=== PATIENT | female | born 1965 | race Caucasian/White ===

== ENCOUNTER 2018-04-22 14:12 | Emergency (ER) | payer MEDICARE, MEDICAID ==
[2018-04-22 15:06] LABS: Bilirubin Negative (Negative); Blood, Urine Negative (Negative); Clarity CLEAR (Clear); Glucose, Urine (Dipstick) Negative (Negative); Leukocyte Negative (Negative); Nitrite Negative (Negative); Protein, Urine (Dipstick) Trace mg/dL (Neg-Trace); Specific Gravity, Urine 1.031 (1.002-1.036); Urobilinogen 0.2 mg/dL (0.2-1.0)
[2018-04-22 15:15] LABS: Cocaine Metabolite Screen Not Detected (NotDetected); Medtox Reader # READER 4; Methamphetamine Not Detected (NotDetected); Phencyclidine (PCP) Not Detected (NotDetected); THC/Cannabinoid Screen Detected (NotDetected)
[2018-04-22 15:16] LABS: Amphetamine Not Detected (NotDetected); Barbiturates Screen Not Detected (NotDetected); Benzodiazepine Screen Detected (NotDetected); Medtox Control Line Valid? VALID (VALID); Methadone Not Detected (NotDetected); Opiate Screen Not Detected (NotDetected); Oxycodone Screen Not Detected (NotDetected); Tricyclic Screen Not Detected (NotDetected)
[2018-04-22 15:17] LABS: #Basophils 0.1 thou/uL (0.0-0.2); #Eosinphils 0.2 thou/uL (0.0-0.7); #Lymphocytes 3.2 thou/uL (1.20-3.40); #Monocytes 0.6 thou/uL (0.11-0.59); #Neutrophils 4.5 thou/uL (1.40-6.50); %Lymphocytes 37.6 % (21.0-51.0); %Monocytes 6.4 % (0.0-10.0); Hemoglobin 13.8 g/dL (12.0-16.0); Mean Corpuscular HGB CONC 32.9 g/dL (32.0-36.0); Mean Corpuscular Hemoglobin 29.5 pg (27.0-31.0); Mean Corpuscular Volume 89.7 fL (78.0-98.0); Mean Platelet Volume 7.6 fL (7.4-10.4); Platelet Count 276 thou/uL (130-400); RBC Distribution Width 12.8 % (11.5-14.5); Red Blood Cell (RBC) Count 4.66 mill/uL (4.20-5.40); White Blood Cell (WBC) Count 8.5 thou/uL (4.8-10.8)
[2018-04-22 15:26] LABS: BHCG - Serum Negative (NEGATIVE); Pregs Control Background? CLEAR/WHITE (CLR/WHITE); Pregs Control Bar Appear? YES (CONTROL BAR)
[2018-04-22 15:32] LABS: ALT (SGPT) 19 U/L (8-55); AST (SGOT) 14 U/L (5-34); Acetaminophen Less than 6.0 mcg/mL (10.0-30.0); Albumin 4.1 g/dL (3.5-5.0); Alcohol Less than 10 mg/dL (Less than 10); Alkaline Phosphatase 72 U/L (40-150); Anion Gap 11 mmol/L (10-20); BUN (Urea Nitrogen) 16 mg/dL (9.8-20.1); Bilirubin, Total 0.3 mg/dL (0.2-1.2); Calc. Creatinine Clearance 0 mL/min (70-130); Calcium 9.9 mg/dL (7.8-10.44); Carbon Dioxide 31 mmol/L (22-29); Chloride 104 mmol/L (98-107); Estimated GFR-MDRD 82; Globulin 2.5 g/dL (2.4-3.5); Glucose 91 mg/dL (70-105); Potassium 3.2 mmol/L (3.5-5.1); Protein, Total 6.6 g/dL (6.0-8.3); Salicylate Less than 8.0 mg/dL (15.0-30.0); Sodium 143 mmol/L (136-145)
[2018-04-22 18:02] LABS: Pregnancy Test - Urine (BHCG) Negative (Negative); Pregu Control Background? CLEAR/WHITE (CLR/WHITE); Pregu Control Bar Appear? YES (CONTROL BAR); Specific Gravity 1.031 (1.002-1.036)
[2018-04-22] MEDS ORDERED: Acetaminophen 325 MG TAB ONE (19:35)
[2018-04-22] MEDS ORDERED: hydrOXYzine Pamoate 25 mg Capsule ONE (19:35)
== END 2018-04-23 09:05 ==
LOC: ERS 14:12
DX: F43.20 Adjustment disorder, unspecified (principal); I10 Essential (primary) hypertension; F41.9 Anxiety disorder, unspecified; F32.9 Major depressive disorder, single episode, unspecified
CPT/HCPCS: 36415; 80053; 80306; 80307; 81003; 81025; 82550; 84443; 84703; 85025; 99285; Q0177

== ENCOUNTER 2019-02-04 11:32 | Emergency (ER) | payer MEDICARE, MEDICAID ==
[2019-02-04] MEDS ORDERED: Lorazepam 2 MG/ML VIAL ONE (11:58)
[2019-02-04] MEDS ORDERED: Albuterol Sulfate 2.5 mg/0.5 ml Neb ONE ×2 (12:18→13:17)
[2019-02-04] MEDS ORDERED: Albuterol Sulfate 2.5 mg/3 ml Neb ONE ×2 (12:18→13:17)
--- NOTE | 2019-02-04 12:20 | RAD ---
Exam: Chest one view HISTORY:SOB Comparison: 09/29/2018 FINDINGS: Lungs: Subtle patchy density seen at each lung base Cardiac silhouette:Accentuated by technique Pulmonary vessels: Mild central prominence Pleural Spaces: Clear Pneumothorax: None Osseous abnormalities: None of acuity. IMPRESSION: Mild patchy bibasilar densities which could relate to volume loss or edema, in light of m ild prominence of pulmonary vasculature.
[2019-02-04 12:25] LABS: #Eosinphils 0.1 thou/uL (0.0-0.7); #Monocytes 0.6 thou/uL (0.11-0.59); #Neutrophils 11.1 thou/uL (1.40-6.50); %Eosinophils 0.6 % (0.0-10.0); %Lymphocytes 14.5 % (21.0-51.0); %Monocytes 4.3 % (0.0-10.0); %Neutrophils 80.5 % (42.0-75.0); Hemoglobin 14.8 g/dL (12.0-16.0); Mean Corpuscular HGB CONC 33.1 g/dL (32.0-36.0); Mean Corpuscular Hemoglobin 28.2 pg (27.0-31.0); Mean Corpuscular Volume 85.2 fL (78.0-98.0); Mean Platelet Volume 7.6 fL (7.4-10.4); Platelet Count 286 thou/uL (130-400); Red Blood Cell (RBC) Count 5.23 mill/uL (4.20-5.40); White Blood Cell (WBC) Count 13.8 thou/uL (4.8-10.8)
[2019-02-04 12:50] LABS: ALT (SGPT) 8 U/L (8-55); AST (SGOT) 11 U/L (5-34); Albumin 4.4 g/dL (3.5-5.0); Alkaline Phosphatase 77 U/L (40-110); Anion Gap 13 mmol/L (10-20); BUN (Urea Nitrogen) 9 mg/dL (9.8-20.1); Bilirubin, Total 0.5 mg/dL (0.2-1.2); Calc. Creatinine Clearance 0 mL/min (70-130); Carbon Dioxide 28 mmol/L (22-29); Chloride 104 mmol/L (98-107); Estimated GFR-MDRD 71; Glucose 112 mg/dL (70-105); Potassium 3.8 mmol/L (3.5-5.1); Protein, Total 7.4 g/dL (6.0-8.3); Sodium 141 mmol/L (136-145)
[2019-02-04] MEDS ORDERED: methylPREDNISolone Sod Succ/PF 125 MG/2 ML VIAL ONE (13:21)
--- NOTE | 2019-02-04 13:41 | CT ---
CT ANGIOGRAM THORAX WITH CONTRAST: (CTA pulmonary angiogram) DATE: 02/04/2019 HISTORY: 54-year-old female with dyspnea and history of previous PE. COMPARISON: 09/29/2018 and 09/19/2012. TECHNIQUE: IV injection of iodinated contrast. Scan acquisition timing attempted to coincide with iodinated contrast bolus reaching maximal density in pulmonary arteries. 3-D MIP reconstructions. FINDINGS: Pulmonary thromboembolism: None. Lungs: No consolidation or edema. A few scattered pleural-based noncalcified bilateral pulmonary nodu les, mentioned on the report of 09/29/2018, are unchanged since 09/19/2012, and are therefore all benign. They do not require follow-up. Pneumothorax: None. Pleural effusion: None. Mild mediastinal and hilar lymphadenopathy, unchanged compared to 09/29/2018 and 09/19/2012. Thoracic aorta: No dissection or aneurysm. Trachea and bilateral mainstem bronchi: Patent and clear. Cardiac: No cardiomegaly or pericardial effusion. No interval change overall since 09/29/2018. IMPRESSION: 1. No pulmonary thromboembolism. 2. No active disease.
[2019-02-04] MEDS ORDERED: Ondansetron PF 4 MG/2 ML Vial ONE (14:16)
[2019-02-04] MEDS ORDERED: Acetaminophen 500 MG TAB ONE (15:21)
== END 2019-02-04 15:29 | disposition home or self-care (01) ==
LOC: ERS 11:32
DX: J45.909 Unspecified asthma, uncomplicated (principal); I10 Essential (primary) hypertension; F41.9 Anxiety disorder, unspecified; F32.9 Major depressive disorder, single episode, unspecified
CPT/HCPCS: 71045; 71275; 80053; 84484; 85025; 85379; 93005; 94640; 96374; 96375; J2060; J2405; J2930; J7611

== ENCOUNTER 2019-04-14 13:07 | Outpatient (CLI) | payer MEDICAID, OTHER ==
--- NOTE | 2019-04-14 14:15 | RAD ---
RIGHT ANKLE 3 VIEWS: Date: 04/14/2019 HISTORY: Right ankle pain. FINDINGS: Mild ankle joint osteoarthrosis changes. Calcaneal Achilles and plantar enthesophytes. No acute fract ure or dislocation. IMPRESSION: Osteoarthrosis and degenerative change without fracture or dislocation. POS: [facility]
--- NOTE | 2019-04-14 14:17 | RAD ---
RIGHT FOOT 3 VIEWS: Date: 04/14/2019 HISTORY: Right foot pain. FINDINGS/IMPRESSION: Degenerative and osteoarthrosis changes without fracture, dislocation, or other acute osseous process . POS: [facility]
== END 2019-04-14 13:08 | disposition home or self-care (01) ==
LOC: RAD-FRANK 13:07
PROVIDERS: ATTEND Internal Medicine
DX: S99.911A Unspecified injury of right ankle, initial encounter (principal); M19.071 Primary osteoarthritis, right ankle and foot

== ENCOUNTER 2019-07-02 08:05 | Outpatient (CLI) | payer MEDICARE, MEDICAID ==
--- NOTE | 2019-07-02 09:09 | MMO ---
Bilateral MAMMO Bilat Screen [facility]. CLINICAL HISTORY: Patient is 54 years old and is seen for screening. The patient has no family history of breast cancer. The patient has no personal history of cancer. VIEWS: The views performed were: bilateral craniocaudal with tomosynthesis and bilateral mediolateral oblique with tomosynthesis. This study has been interpreted with the assistance of computer-aided detection. MAMMOGRAM FINDINGS: There are scattered fibroglandular densities. There are no suspicious masses, suspicious calcifications, or new areas of architectural distortion. IMPRESSION: THERE IS NO MAMMOGRAPHIC EVIDENCE OF MALIGNANCY. A ROUTINE FOLLOW-UP MAMMOGRAM IN 1 YEAR IS RECOMMENDED. THE RESULTS OF THIS EXAM WERE SENT TO THE PATIENT. ACR BI-RADS Category 1 - Negative MAMMOGRAPHY NOTE: 1. A negative mammogram report should not delay a biopsy if a dominant of clinically suspicious mass is present. 2. Approximately 10% to 15% of breast cancers are not detected by mammography. 3. Adenosis and dense breasts may obscure an underlying neoplasm. Reported by: DONNELL ZARATE MD Electonically Signed: [id number]
== END 2019-07-02 08:06 | disposition home or self-care (01) ==
LOC: BICMAMMO 08:05
PROVIDERS: ATTEND Family Medicine
DX: Z12.31 Encounter for screening mammogram for malignant neoplasm of breast (principal)
CPT/HCPCS: 77063; 77067

== ENCOUNTER 2021-02-09 22:27 | Emergency (ER) | payer MEDICARE, MEDICAID ==
[2021-02-09] MEDS ORDERED: Sucralfate 1 GM/10 ML UDCUP ONE (23:19)
[2021-02-09 23:27] LABS: #Lymphocytes 0.5 thou/uL (1.20-3.40); #Monocytes 0.8 thou/uL (0.11-0.59); #Neutrophils 5.7 thou/uL (1.40-6.50); %Eosinophils 0.3 % (0.0-10.0); %Lymphocytes 7.6 % (21.0-51.0); %Monocytes 10.7 % (0.0-10.0); %Neutrophils 81.4 % (42.0-75.0); Hemoglobin 16.2 g/dL (12.0-16.0); Mean Corpuscular HGB CONC 32.8 g/dL (32.0-36.0); Mean Corpuscular Hemoglobin 28.7 pg (27.0-31.0); Mean Corpuscular Volume 87.7 fL (78.0-98.0); Platelet Count 215 thou/uL (130-400); RBC Distribution Width 13.5 % (11.5-14.5); Red Blood Cell (RBC) Count 5.62 mill/uL (4.20-5.40)
[2021-02-09 23:53] LABS: ALT (SGPT) 14 U/L (8-55); AST (SGOT) 20 U/L (5-34); Albumin 4.4 g/dL (3.5-5.0); Alkaline Phosphatase 97 U/L (40-110); Anion Gap 16 mmol/L (10-20); BUN (Urea Nitrogen) 9 mg/dL (9.8-20.1); Bilirubin, Total 0.5 mg/dL (0.2-1.2); Calc. Creatinine Clearance 0 mL/min (70-130); Calcium 10.6 mg/dL (7.8-10.44); Carbon Dioxide 24 mmol/L (22-29); Chloride 99 mmol/L (98-107); Glucose 149 mg/dL (70-105); Lipase 8 U/L (8-78); Potassium 4.3 mmol/L (3.5-5.1); Protein, Total 7.4 g/dL (6.0-8.3); Sodium 135 mmol/L (136-145)
[2021-02-10 00:03] LABS: Bacteria/HPF None Seen HPF (None Seen); Bilirubin Negative (Negative); Blood, Urine Trace (Negative); Clarity Clear (Clear); Glucose, Urine (Dipstick) Normal (Negative); Ketone, Urine 100 mg/dL (Negative); Leukocyte Negative Leu/uL (Negative); Nitrite Negative (Negative); Protein, Urine (Dipstick) 70 mg/dL (Neg-Trace); Specific Gravity, Urine 1.025 (1.002-1.036); Squamous Epithelial 0-3 HPF (0-3); Urobilinogen Normal mg/dL (Less than 2); WBC/HPF 0-3 HPF (0-3); pH, Urine 8.5 (5.0-9.0)
[2021-02-10] MEDS ORDERED: Promethazine HCl 25 MG/ML VIAL ONE (00:36)
[2021-02-10] MEDS ORDERED: Acetaminophen 325 MG TAB ONE (01:17)
[2021-02-10] MEDS ORDERED: Morphine 4 MG/ML VIAL ONE (01:43)
== END 2021-02-10 02:42 | disposition home or self-care (01) ==
LOC: ERS 22:27
DX: R11.2 Nausea with vomiting, unspecified (principal); I10 Essential (primary) hypertension; G43.909 Migraine, unspecified, not intractable, without status migrainosus; Z79.01 Long term (current) use of anticoagulants; Z79.899 Other long term (current) drug therapy
CPT/HCPCS: 36415; 80053; 81003; 81015; 83690; 84484; 85025; 93005; 96372; J2270; J2550

== ENCOUNTER 2022-06-13 13:27 | Outpatient (CLI) | payer OTHER | END 2022-06-13 13:28 | disposition home or self-care (01) | LOC: TBSIIMAG 13:27 | PROVIDERS: ATTEND Psychiatry & Neurology Neurology | DX: G43.009 Migraine without aura, not intractable, without status migrainosus (principal) | CPT/HCPCS: 70551 ==

== ENCOUNTER 2022-06-20 12:18 | Outpatient (CLI) | payer OTHER | END 2022-06-20 12:19 | disposition home or self-care (01) | LOC: SCSCT 12:18 | PROVIDERS: ATTEND Nurse Practitioner Family | DX: G90.50 Complex regional pain syndrome I, unspecified (principal); M47.816 Spondylosis without myelopathy or radiculopathy, lumbar region | CPT/HCPCS: 72131 ==

== ENCOUNTER 2022-09-29 12:50 | Observation (INO) | payer OTHER, MEDICAID ==
[2022-09-29 13:27] LABS: #Basophils 0.1 thou/uL (0.0-0.2); #Eosinphils 0.3 thou/uL (0.0-0.7); #Monocytes 0.7 thou/uL (0.11-0.59); #Neutrophils 5.6 thou/uL (1.40-6.50); %Basophils 0.8 % (0.0-1.0); %Eosinophils 3.5 % (0.0-10.0); %Lymphocytes 20.3 % (21.0-51.0); %Monocytes 8.1 % (0.0-10.0); %Neutrophils 67.1 % (42.0-75.0); Hematocrit 41.3 % (36.0-47.0); Hemoglobin 13.4 g/dL (12.0-16.0); Mean Corpuscular HGB CONC 32.4 g/dL (32.0-36.0); Mean Corpuscular Hemoglobin 29.4 pg (27.0-31.0); Mean Corpuscular Volume 90.6 fl (78.0-98.0); Mean Platelet Volume 10.1 fL (7.4-10.4); Platelet Count 194 10x3/uL (130-400); RBC Distribution Width 14.1 % (11.5-14.5); Red Blood Cell (RBC) Count 4.56 mill/uL (4.20-5.40); White Blood Cell (WBC) Count 8.3 10x3/uL (4.8-10.8)
[2022-09-29] MEDS ORDERED: Magnesium 2 GM/50 ML BAG (IN WATER) ONE (13:36)
[2022-09-29] MEDS ORDERED: Dexamethasone 10 MG/ML VIAL ONE (13:36)
[2022-09-29] MEDS ORDERED: Metoclopramide HCl 10 MG/2 ML VIAL ONE (13:36)
[2022-09-29 13:48] LABS: Troponin I Less than 0.010 ng/mL (< 0.028)
[2022-09-29 13:53] LABS: ALT (SGPT) 13 U/L (8-55); AST (SGOT) 14 U/L (5-34); Alkaline Phosphatase 55 U/L (40-110); Anion Gap 13 mmol/L (10-20); BUN (Urea Nitrogen) 11 mg/dL (9.8-20.1); Bilirubin, Total 0.3 mg/dL (0.2-1.2); CK (CPK) 57 U/L (29-168); Calc. Creatinine Clearance 0 mL/min (70-130); Calcium 9.5 mg/dL (7.8-10.44); Carbon Dioxide 26 mmol/L (22-29); Chloride 107 mmol/L (98-107); Estimated GFR 69; Globulin 2.7 g/dL (2.4-3.5); Glucose 105 mg/dL (70-105); Magnesium 2.1 mg/dL (1.6-2.6); Potassium 4.3 mmol/L (3.5-5.1); Protein, Total 6.7 g/dL (6.0-8.3); Sodium 142 mmol/L (136-145)
[2022-09-29] MEDS ORDERED: Aspirin Chewable 81 MG TAB ONE (14:17)
[2022-09-29] MEDS ORDERED: Atropine Sulfate 1 mg/10 ml Syringe ONE (15:10)
[2022-09-29 15:36] LABS: Bacteria/HPF Rare-Few HPF (None Seen); Bilirubin Negative (Negative); Blood, Urine Trace (Negative); CAUTI Indications for Culture Dysuria,urgency,freq; Clarity Clear (Clear); Glucose, Urine (Dipstick) Normal (Negative); Ketone, Urine Negative (Negative); Leukocyte Negative Leu/uL (Negative); Nitrite Negative (Negative); Protein, Urine (Dipstick) Negative (Neg-Trace); RBC/HPF 0-3 HPF (0-3); Specific Gravity, Urine 1.006 (1.002-1.036); Squamous Epithelial 0-3 HPF (0-3); Urobilinogen Normal mg/dL (Less than 2); WBC/HPF 0-3 HPF (0-3)
[2022-09-29 15:37] LABS: Urine Culture Reflex No No
[2022-09-29 16:03] LABS: SARS-CoV-2 NAA Rapid Test Not Detected (NotDetected)
[2022-09-29] MEDS ORDERED: Ondansetron PF 4 MG/2 ML Vial IVP PRN (17:47)
[2022-09-29] MEDS ORDERED: Bisacodyl 10 MG SUPP PR PRN (17:47)
[2022-09-29] MEDS ORDERED: Bisacodyl 5 MG TAB PO PRN (17:47)
[2022-09-29] MEDS ORDERED: Senokot S 8.6-50 MG TAB PO PRN (17:47)
[2022-09-29 18:06] LABS: Troponin I Less than 0.010 ng/mL (< 0.028)
[2022-09-29 18:51] VITALS: BMI 29.9
[2022-09-29] MEDS ORDERED: Pantoprazole 40 MG VIAL IVP SCH (19:15)
[2022-09-29] MEDS: Lactated Ringer's 1,000 ML IV SCH (20:25)
[2022-09-29 21:09] LABS: Troponin I Less than 0.010 ng/mL (< 0.028)
[2022-09-29] MEDS: Morphine 2 MG/ML VIAL SLOW IVP PRN (21:11)
[2022-09-29 23:09] LABS: Amphetamine Not Detected (NotDetected); Barbiturates Screen Not Detected (NotDetected); Benzodiazepine Screen Not Detected (NotDetected); Cocaine Metabolite Screen Not Detected (NotDetected); Methadone Not Detected (NotDetected); Methamphetamine Not Detected (NotDetected); Opiate Screen Detected (NotDetected); Oxycodone Screen Not Detected (NotDetected); Phencyclidine (PCP) Not Detected (NotDetected); THC/Cannabinoid Screen Detected (NotDetected); Tricyclic Screen Not Detected (NotDetected)
[2022-09-30] MEDS: Morphine 2 MG/ML VIAL SLOW IVP PRN (03:37)
[2022-09-30 05:54] LABS: #Basophils 0.1 thou/uL (0.0-0.2); #Monocytes 0.6 thou/uL (0.11-0.59); #Neutrophils 8.6 thou/uL (1.40-6.50); %Basophils 0.5 % (0.0-1.0); %Lymphocytes 15.3 % (21.0-51.0); %Neutrophils 78.2 % (42.0-75.0); Hematocrit 42.8 % (36.0-47.0); Hemoglobin 13.9 g/dL (12.0-16.0); Mean Corpuscular HGB CONC 32.5 g/dL (32.0-36.0); Mean Corpuscular Hemoglobin 29.6 pg (27.0-31.0); Mean Corpuscular Volume 91.1 fl (78.0-98.0); Mean Platelet Volume 10.4 fL (7.4-10.4); Platelet Count 197 10x3/uL (130-400); RBC Distribution Width 13.6 % (11.5-14.5)
[2022-09-30 06:01] LABS: Hemoglobin A1c 5.2 % (4.0-6.0)
[2022-09-30] MEDS: Lactated Ringer's 1,000 ML IV SCH (06:02)
[2022-09-30 06:07] LABS: Anion Gap 11 mmol/L (10-20); BUN (Urea Nitrogen) 9 mg/dL (9.8-20.1); CRP (Inflammatory) Less than 0.50 mg/dL (= or < 0.5); Calc. Creatinine Clearance 106 mL/min (70-130); Calcium 9.3 mg/dL (7.8-10.44); Carbon Dioxide 19 mmol/L (22-29); Cardiac Risk 3.8 (Less than 4.5); Chloride 111 mmol/L (98-107); Cholesterol 216 mg/dl (< 200 Desired); Estimated GFR 87; Glucose 126 mg/dL (70-105); HDL Cholesterol 57 mg/dL (>60 Neg Risk); LDL Cholesterol, Calculated 142 mg/dL; Potassium 3.9 mmol/L (3.5-5.1); Sodium 137 mmol/L (136-145); Triglycerides 84 mg/dL (Less than 150)
[2022-09-30 06:17] LABS: ALT (SGPT) 10 U/L (8-55); AST (SGOT) 11 U/L (5-34); Albumin 3.6 g/dL (3.5-5.0); Alkaline Phosphatase 56 U/L (40-110); Bilirubin, Direct 0.1 mg/dL (0.1-0.3); Bilirubin, Total 0.2 mg/dL (0.2-1.2); Protein, Total 6.4 g/dL (6.0-8.3)
[2022-09-30] MEDS ORDERED: NARATRIPTAN HCL 2.5 MG PO PRN (10:42)
[2022-09-30] MEDS ORDERED: SUMAtriptan Succinate 50 MG TAB PO PRN (10:48)
[2022-09-30] MEDS ORDERED: Non-Formulary Item 1 EACH (Pregabalin [Lyrica] 200 MG Capsule) PO SCH (21:00)
[2022-09-30] MEDS ORDERED: Cyclobenzaprine 10 MG TAB PO SCH (21:00)
[2022-09-30] MEDS ORDERED: Non-Formulary Item 1 EACH (Trazodone [Trazodone] 100 MG Tab) PO SCH (21:00)
[2022-09-30] MEDS ORDERED: Melatonin 3 MG TAB PO SCH (21:00)
[2022-09-30] MEDS ORDERED: traZODone HCl 50 MG TAB PO SCH (21:00)
[2022-09-30] MEDS ORDERED: Non-Formulary Item 1 EACH (Ramelteon [Ramelteon] 8 MG Tablet) PO SCH (21:00)
[2022-09-30] MEDS: Acetaminophen 325 MG TAB PO PRN (22:02)
[2022-09-30] MEDS: Pregabalin 75 MG CAP PO SCH (22:04)
[2022-09-30] MEDS: Topiramate 25 MG TAB PO SCH (22:21)
[2022-10-01 04:49] LABS: #Basophils 0.1 thou/uL (0.0-0.2); #Eosinphils 0.1 thou/uL (0.0-0.7); #Monocytes 0.9 thou/uL (0.11-0.59); #Neutrophils 5.8 thou/uL (1.40-6.50); %Basophils 0.8 % (0.0-1.0); %Eosinophils 0.9 % (0.0-10.0); %Monocytes 8.7 % (0.0-10.0); %Neutrophils 55.2 % (42.0-75.0); Hemoglobin 13.6 g/dL (12.0-16.0); Mean Corpuscular HGB CONC 33.2 g/dL (32.0-36.0); Mean Corpuscular Volume 90.3 fl (78.0-98.0); Mean Platelet Volume 10.6 fL (7.4-10.4); Platelet Count 199 10x3/uL (130-400); RBC Distribution Width 14.2 % (11.5-14.5); Red Blood Cell (RBC) Count 4.54 mill/uL (4.20-5.40); White Blood Cell (WBC) Count 10.4 10x3/uL (4.8-10.8)
[2022-10-01 05:15] LABS: Anion Gap 13 mmol/L (10-20); BUN (Urea Nitrogen) 10 mg/dL (9.8-20.1); Calc. Creatinine Clearance 105 mL/min (70-130); Calcium 8.8 mg/dL (7.8-10.44); Carbon Dioxide 22 mmol/L (22-29); Chloride 109 mmol/L (98-107); Estimated GFR 85; Glucose 94 mg/dL (70-105); Magnesium 1.9 mg/dL (1.6-2.6); Potassium 3.6 mmol/L (3.5-5.1); Sodium 140 mmol/L (136-145)
[2022-10-01] MEDS ORDERED: Regadenoson 0.4 MG/5 ML SYRINGE ONE (10:27)
[2022-10-01] MEDS: Acetaminophen 325 MG TAB PO PRN (10:30)
[2022-10-01] MEDS: Pregabalin 75 MG CAP PO SCH (10:31)
[2022-10-01] MEDS: Topiramate 25 MG TAB PO SCH (10:31)
[2022-10-01 11:56] VITALS: BP 129/71; TEMP 98.6
== END 2022-10-01 14:16 | disposition home or self-care (01) ==
LOC: ERS 12:50 → 2NO 17:12
PROVIDERS: ADMIT Family Medicine; ATTEND Internal Medicine
DX: R07.9 Chest pain, unspecified (principal); M79.7 Fibromyalgia; G89.4 Chronic pain syndrome; R00.1 Bradycardia, unspecified; Z79.01 Long term (current) use of anticoagulants; Z79.899 Other long term (current) drug therapy; Z91.018 Allergy to other foods; Z90.49 Acquired absence of other specified parts of digestive tract; Z90.710 Acquired absence of both cervix and uterus; Z88.8 Allergy status to other drugs, medicaments and biological substances; Z86.711 Personal history of pulmonary embolism; Z91.012 Allergy to eggs
CPT/HCPCS: 0240U; 71045; 78452; 80048 ×2; 80061; 80076; 80306; 81001; 82550; 83036; 83735 ×3; 84443; 84484 ×2; 85025 ×2; 85652; 86140; 86850; 86900; 86901; 93005; 93017; 94760; 96375; 96376; 97116; A9500; G0378 ×4; J2785; 36415; 36416; 80053; 96365; 96367; C9113; J0461; J1100; J1650; J2272; J2765; J3475; J7120

== ENCOUNTER 2023-11-20 12:45 | Outpatient (CLI) | payer OTHER, MEDICAID ==
[2023-11-20 14:02] LABS: %Basophils 1.4 % (0.0-1.0); %Neutrophils 57.3 % (42.0-75.0); Hematocrit 43.8 % (36.0-47.0); Hemoglobin 14.2 g/dL (12.0-16.0); Mean Corpuscular HGB CONC 32.4 g/dL (32.0-36.0); Mean Corpuscular Hemoglobin 28.6 pg (27.0-31.0); Mean Corpuscular Volume 88.1 fL (78.0-98.0); Mean Platelet Volume 10.1 fL (7.4-10.4); Platelet Count 224 10x3/uL (130-400); RBC Distribution Width 13.8 % (11.5-14.5); Red Blood Cell (RBC) Count 4.97 mill/uL (4.20-5.40)
[2023-11-20 14:23] LABS: Anion Gap 10 mmol/L (10-20); BUN (Urea Nitrogen) 7 mg/dL (9.8-20.1); Calc. Creatinine Clearance 0 mL/min (70-130); Calcium 9.4 mg/dL (7.8-10.44); Carbon Dioxide 24 mmol/L (22-29); Chloride 111 mmol/L (98-107); Estimated GFR 66; Glucose 126 mg/dL (70-105); Potassium 3.9 mmol/L (3.5-5.1); Prothrombin Time 22.6 sec (12.0-14.7); Sodium 141 mmol/L (136-145)
== END 2023-11-20 12:46 | disposition home or self-care (01) ==
LOC: LABBT 12:45
PROVIDERS: ATTEND Internal Medicine Cardiovascular Disease
DX: Z01.812 Encounter for preprocedural laboratory examination (principal); I47.10 Supraventricular tachycardia, unspecified
CPT/HCPCS: 80048; 85025; 85610